=== PATIENT | female | born 1990 | race Caucasian/White ===

== ENCOUNTER 2016-11-22 19:06 | Inpatient (IN) | payer BC ==
[~2016-11-22] VITALS: Ht 167.6 cm; Wt 77.1 kg
[2016-11-22] MEDS ORDERED: NKM (23:19)
[2016-11-22 23:31] VITALS: BP 114/60
[2016-11-23] MEDS ORDERED: Hydromorphone 0.5mg/0.5ml inj IVP PRN (01:30)
[2016-11-23] MEDS ORDERED: HYDROmorphone 1mg/ml Carpuject IVP PRN (01:30)
[2016-11-23] MEDS: Methocarbamol 750mg tab ORAL SCH ×4 (02:18→17:07)
[2016-11-23 04:00] VITALS: BP 94/57
[2016-11-23 06:59] LABS: ANION GAP 9 (5-15); CALCIUM 9.3 mg/dL (8.6-10.2); CARBON DIOXIDE 27 mEQ/L (20-30); CHLORIDE 101 mEQ/L (98-107); CREATININE 0.6 mg/dL (0.5-0.9); GLOMERULAR FILTRATION RATE > 60 mL/min (>60); HEMOLYSIS 4; POTASSIUM 4.2 mEQ/L (3.4-4.9); SODIUM 137 mEQ/L (135-145)
[2016-11-23 08:00] VITALS: BP 102/61
[2016-11-23 08:25] LABS: MEAN CORPUSCULAR HEMOGLOBIN 30.4 PG (27.0-31.0); MEAN CORPUSCULAR HGB CONC 34.1 G/DL (32.0-36.0); MEAN CORPUSCULAR VOLUME 89 FL (80-99); MEAN PLATELET VOLUME 7.1 FL (6.5-10.1); PLATELET COUNT 224 K/UL (150-450); RED BLOOD COUNT 4.23 M/UL (4.20-5.40); RED CELL DISTRIBUTION WIDTH 10.5 % (11.6-14.8); WHITE BLOOD COUNT 14.4 K/UL (4.8-10.8)
[2016-11-23 09:35] LABS: BAND NEUTROPHILS % (MANUAL) 1 % (0-8); LYMPHOCYTES % (MANUAL) 6 % (20-45); NEUTROPHILS % (MANUAL) 88 % (45-75); TOTAL CELLS COUNTED 100
[2016-11-23 09:36] LABS: BASOPHILS % (MANUAL) 0 % (0-2); EOSINOPHILS % (MANUAL) 0 % (0-3); PLATELET ESTIMATE ADEQUATE; PLATELET MORPHOLOGY NORMAL
[2016-11-23 10:33] LABS: PROTHROMBIN TIME 10.9 SEC (9.30-11.50)
[2016-11-23 12:00] VITALS: BP 123/69
[2016-11-23] MEDS: Magnesium Oxide 400mg tab ORAL SCH ×2 (13:03→17:07)
[2016-11-23] MEDS: Heparin 5000 units/ml inj SUBQ SCH ×2 (13:13→20:34)
--- NOTE | 2016-11-23 13:53 | Consultation ---
History of Present Illness General Date patient seen: Nov 23, 2016 Time patient seen: 12:00 Chief Complaint: back pain Referring physician: dr Camargo Reason for Consultation: inpatient management Present Illness HPI 26 /old female with no PMH, was initially presented to [facility] for c/o acute low back pain patient was bending over and felt sharp[ low back pain, causing her to fell on the floor She was unable afterwards to get up and had to crawl to the bed denied bladder or bowel incontinence denied numbness in pelvic/sacral area pain felt in low back, sharp, throbbing, but no radiation in [place] [facility] medicated for pain with NSAID/Toradol, Dilaudid and given loading dose of Solumedrol labs were unremarkable pain improved patient reported similar symptoms when she was 14, resolved after 1 week in the bed never had work up these symptoms patient was transferred to [facility] [place] management Allergies: Coded Allergies: NO KNOWN ALLERGIES (Verified Allergy, Unknown, 11/22/16) Medication History Scheduled No Known Medications* (NKM - No Known Medications*), 0 ., (Reported) Patient History History Provided By: Patient Healthcare decision maker Resuscitation status Full code Advanced Directive on File Review of Systems Constitutional: Reports: weakness Eye: Reports: no symptoms ENT: Reports: no symptoms Respiratory: Reports: no symptoms Cardiovascular: Reports: no symptoms Gastrointestinal: Reports: no symptoms Genitourinary: Reports: no symptoms Musculoskeletal: Reports: see HPI Skin: Reports: no symptoms Psychiatric: Reports: no symptoms Neurological: Reports: no symptoms Endocrine: Reports: no symptoms Hematologic/Lymphatic: Reports: no symptoms Physical Exam General Appearance: WD/WN, no apparent distress, alert Lines, tubes and drains: peripheral HEENT: normocephalic, atraumatic, anicteric, mucous membranes moist, PERRL Neck: non-tender, normal alignment, supple Respiratory/Chest: chest wall non-tender, lungs clear, normal breath sounds, no respiratory distress Cardiovascular/Chest: normal peripheral pulses, normal rate, regular rhythm, no JVD Abdomen: normal bowel sounds, non tender, soft Extremities: normal range of motion, non-tender, no calf tenderness, normal capillary refill Skin Exam: warm/dry 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, no motor/sensory deficits, alert, oriented x 3, responsive Musculoskeletal: normal muscle bulk Last 24 Hour Vital Signs Date Time Temp Pulse Resp B/P (MAP) Pulse Ox O2 Delivery O2 Flow Rate FiO2 11/23/16 12:00 97.6 83 18 123/69 97 Room Air 11/23/16 08:00 98.4 74 20 102/61 97 Room Air 11/23/16 04:00 98.1 84 17 94/57 95 Room Air 11/22/16 23:31 98.0 86 16 114/60 98 Room Air Intake and Output 11/23/16 11/24/16 19:00 07:00 Intake Total 300 ml Balance 300 ml Intake Oral 300 ml # Voids 1 Laboratory Tests Test 11/23/16 05:10 11/23/16 09:55 White Blood Count 14.4 K/UL (4.8-10.8) H Red Blood Count 4.23 M/UL (4.20-5.40) Hemoglobin 12.9 G/DL (12.0-16.0) Hematocrit 37.8 % (37.0-47.0) Mean Corpuscular Volume 89 FL (80-99) Mean Corpuscular Hemoglobin 30.4 PG (27.0-31.0) Mean Corpuscular Hemoglobin Concent 34.1 G/DL (32.0-36.0) Red Cell Distribution Width 10.5 % (11.6-14.8) L Platelet Count 224 K/UL (150-450) Mean Platelet Volume 7.1 FL (6.5-10.1) Neutrophils (%) (Auto) % (45.0-75.0) Lymphocytes (%) (Auto) % (20.0-45.0) Monocytes (%) (Auto) % (1.0-10.0) Eosinophils (%) (Auto) % (0.0-3.0) Basophils (%) (Auto) % (0.0-2.0) Differential Total Cells Counted 100 Neutrophils % (Manual) 88 % (45-75) H Lymphocytes % (Manual) 6 % (20-45) L Monocytes % (Manual) 5 % (1-10) Eosinophils % (Manual) 0 % (0-3) Basophils % (Manual) 0 % (0-2) Band Neutrophils 1 % (0-8) Platelet Estimate Adequate Platelet Morphology Normal Sodium Level 137 mEQ/L (135-145) Potassium Level 4.2 mEQ/L (3.4-4.9) Chloride Level 101 mEQ/L (98-107) Carbon Dioxide Level 27 mEQ/L (20-30) Anion Gap 9 (5-15) Blood Urea Nitrogen 12 mg/dL (7-23) Creatinine 0.6 mg/dL (0.5-0.9) Estimat Glomerular Filtration Rate > 60 mL/min (>60) Glucose Level 177 mg/dL (74-106) H Calcium Level 9.3 mg/dL (8.6-10.2) Phosphorus Level 2.3 mg/dL (2.5-4.8) L Magnesium Level 1.6 mg/dL (1.7-2.5) L Prothrombin Time 10.9 SEC (9.30-11.50) Prothromb Time International Ratio 1.0 (0.9-1.1) Activated Partial Thromboplast Time 26 SEC (23-33) Height (Feet): 5 Height (Inches): 6.00 Weight (Pounds): 170 Medications Current Medications Medications (Trade) Dose Ordered Sig/Michela Route PRN Reason Start Time Stop Time Status Last Admin Dose Admin Acetaminophen (Tylenol) 650 mg Q6H PRN ORAL Mild Pain/Temp > 100.5 11/23/16 01:30 12/23/16 01:29 Diazepam (Valium) 2 mg QHS ORAL 11/23/16 21:00 11/30/16 20:59 Heparin Sodium (Porcine) (Heparin 5000 units/ml) 5,000 units EVERY 12 HOURS SUBQ 11/23/16 12:00 12/23/16 11:59 11/23/16 13:13 Hydromorphone HCl (Dilaudid) 0.5 mg Q6H PRN IVP MILD/MOD PAIN 11/23/16 01:30 11/30/16 01:29 Hydromorphone HCl (Dilaudid) 1 mg Q6H PRN IVP Severe Pain (Pain Scale 7-10) 11/23/16 01:30 11/30/16 01:29 Magnesium Oxide (Mag-Ox 400mg) 400 mg THREE TIMES A DAY ORAL 11/23/16 13:00 11/23/16 18:01 11/23/16 13:03 Methocarbamol (Robaxin) 750 mg TID ORAL 11/23/16 01:30 12/23/16 01:29 11/23/16 13:03 Ondansetron HCl (Zofran) 4 mg Q6H PRN IVP Nausea & Vomiting 11/23/16 01:30 12/23/16 01:29 Prednisone (predniSONE) 40 mg DAILY ORAL 11/23/16 09:00 11/27/16 09:00 11/23/16 09:27 Ranitidine HCl (Zantac) 75 mg TWICE A DAY ORAL 11/23/16 09:00 12/23/16 08:59 11/23/16 09:32 Assessment/Plan Assessment/Plan ASSESSMENT acute and intractable low back pain leukocytosis, likely reactive PLAN OF CARE MS floor pain management with multiple array of NSAID, muscle relaxants and opioids steroid pulse neuro and ortho eval - pe PMD discretion MRI L spine and sacral to r/o acute pathology replace Mg with oral Mg oxide Neutro-Phosp x 3 doses only fup with lytes DVT , GI prophylaxis monitor count, leukocytosis likely reactive due to steroids ( in [facility], this am -14.4) check UA case discussed and evaluated by supervising physician Ramu Arthur),Devi CAMPBELL Nov 23, 2016 13:53
[2016-11-23 16:00] VITALS: BP 120/75
--- NOTE | 2016-11-23 16:26 | History & Physical ---
History and Physical History & Physicial Dictated for Int Med-Dr Camargo no. [id number]. ELLI EDMOND Nov 23, 2016 16:26
[2016-11-23] MEDS: Phospha 250 Neutral tab ORAL SCH (17:06)
[2016-11-23 20:00] VITALS: BP 116/66
--- NOTE | 2016-11-23 23:30 | History and Physical Report ---
DATE OF ADMISSION: 11/22/2016 Chief Complaint: The patient is a 26-year-old white female, who presents with a chief complaint of low back pain. History Of Present Illness: Began two weeks prior to admission. The patient states she was lifting at the gym. The patient also carried three gallons of water up the stairs that day. The patient began to experience back pain. The patient has a previous history of low back pain, however, this has never been worked up. 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 The patient states on 11/22/2016, she bent over in the shower. The patient states her back "gave out." The patient states it felt like she lost muscle strength. The patient presented initially to [facility] emergency room. The patient is transferred to [facility] for insurance purposes. The patient presents with a chief complaint of low back pain. PAST MEDICAL HISTORY: The patient denies. PAST SURGICAL HISTORY: The patient denies. CURRENT MEDICATIONS: P.r.n. muscle relaxants (unknown). ALLERGIES: No known drug allergies. Social History: The patient is single. 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 The patient denies tobacco use. The patient admits to rare alcohol use. PHYSICAL EXAMINATION: Vital Signs: Temperature 98.0 degrees, pulse 86, blood pressure 114/62, and respirations 16. General: The patient is a well-developed and well-nourished white female, in no apparent distress. HEENT: Eyes, pupils equal and responsive to light and accommodation. Extraocular movements are intact. NECK: Supple without lymphadenopathy. Chest: Lungs are clear to auscultation bilaterally without wheezes or rales. Cardiovascular: Regular rhythm and rate. S1 and S2 are normal without murmurs, rubs, or gallops. Abdomen: Soft, nontender, and nondistended. Positive bowel sounds. No evidence of hepatosplenomegaly. Currently, no rebound or guarding noted. EXTREMITIES: Negative for clubbing, cyanosis, or edema. Neurologic: Cranial nerves II through XII are grossly intact without focal deficits. Motor strength is 5/5 bilaterally. Deep tendon reflexes are 2+ plantar. Straight leg raises are negative bilaterally. ASSESSMENT: This is a 26-year-old white female. 1. Intractable back pain. Treatment: Intractable back pain. An MRI of the back is pending. A Neurology consultation was obtained with Dr. Montesinos. An Orthopedic consultation was obtained with Dr. Correa. We will follow recommendations of Orthopedics and Neurology. The patient will be offered intravenous morphine p.r.n. for back pain. Kyle Nye M.D. DR: CURTIS JOB#: [id number] CC:
[2016-11-24] VITALS: BP 109/65
[2016-11-24 04:00] VITALS: BP 106/70
[2016-11-24 08:00] VITALS: BP 131/80
--- NOTE | 2016-11-24 08:35 | Pulmonology Progress Note ---
Assessment/Plan Assessment/Plan ASSESSMENT acute and intractable low back pain leukocytosis ( likely reactive due to steroids) PLAN OF CARE MS floor neuro eval pending pain management with multiple array of NSAID, muscle relaxants and opioids steroid pulse MRI L spine and sacral to r/o acute pathology Mg replacement with oral Mg oxide Neutro-Phosp x 3 doses only fup with lytes DVT , GI prophylaxis monitor count, leukocytosis likely reactive due to [facility] check UA labs pending for this am case discussed and evaluated by supervising physician Subjective Allergies: Coded Allergies: NO KNOWN ALLERGIES (Verified Allergy, Unknown, 11/22/16) Subjective still with pain, slowly improving pain with ambulation, not at rest no sacral numbness, no bowel/bladder incontinence, no radiation of pain imaging pending Objective Last 24 Hour Vital Signs Date Time Temp Pulse Resp B/P (MAP) Pulse Ox O2 Delivery O2 Flow Rate FiO2 11/24/16 04:00 97.9 80 18 106/70 96 Room Air 11/24/16 00:00 98.0 73 18 109/65 94 Room Air 11/23/16 20:00 98.2 77 18 116/66 96 Room Air 11/23/16 18:00 97.6 11/23/16 16:00 97.7 92 20 120/75 94 Room Air 11/23/16 12:00 97.6 83 18 123/69 97 Room Air Objective General Appearance: WD/WN, no apparent distress, alert Lines, tubes and drains: peripheral HEENT: normocephalic, atraumatic, anicteric, mucous membranes moist, PERRL Neck: non-tender, normal alignment, supple Respiratory/Chest: chest wall non-tender, lungs clear, normal breath sounds, no respiratory distress Cardiovascular/Chest: normal peripheral pulses, normal rate, regular rhythm, no JVD Abdomen: normal bowel sounds, non tender, soft Extremities: normal range of motion, non-tender, no calf tenderness, normal capillary refill Skin Exam: warm/dry 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, no motor/sensory deficits, alert, oriented x 3, responsive Musculoskeletal: normal muscle bulk Laboratory Tests 11/23/16 09:55: Prothrombin Time 10.9, Prothromb Time International Ratio 1.0, Activated Partial Thromboplast Time 26 Current Medications Medications (Trade) Dose Ordered Sig/Michela Route PRN Reason Start Time Stop Time Status Last Admin Dose Admin Acetaminophen (Tylenol) 650 mg Q6H PRN ORAL Mild Pain/Temp > 100.5 11/23/16 01:30 12/23/16 01:29 11/23/16 17:08 Diazepam (Valium) 2 mg QHS ORAL 11/23/16 21:00 11/30/16 20:59 11/23/16 20:33 Heparin Sodium (Porcine) (Heparin 5000 units/ml) 5,000 units EVERY 12 HOURS SUBQ 11/23/16 12:00 12/23/16 11:59 11/23/16 20:34 Hydromorphone HCl (Dilaudid) 0.5 mg Q6H PRN IVP MILD/MOD PAIN 11/23/16 01:30 11/30/16 01:29 Hydromorphone HCl (Dilaudid) 1 mg Q6H PRN IVP Severe Pain (Pain Scale 7-10) 11/23/16 01:30 11/30/16 01:29 Methocarbamol (Robaxin) 750 mg TID ORAL 11/23/16 01:30 12/23/16 01:29 11/23/16 17:07 Ondansetron HCl (Zofran) 4 mg Q6H PRN IVP Nausea & Vomiting 11/23/16 01:30 12/23/16 01:29 Phosphorus (Phospha 250 Neutral) 250 mg THREE TIMES A DAY ORAL 11/23/16 18:00 11/24/16 13:01 11/23/16 17:06 Prednisone (predniSONE) 40 mg DAILY ORAL 11/23/16 09:00 11/27/16 09:00 11/23/16 09:27 Ranitidine HCl (Zantac) 75 mg TWICE A DAY ORAL 11/23/16 09:00 12/23/16 08:59 11/23/16 17:06 Devi Guallpa NP (Vanchtein) Nov 24, 2016 08:35
[2016-11-24] MEDS: Heparin 5000 units/ml inj SUBQ SCH ×2 (09:00→21:00)
[2016-11-24] MEDS: Methocarbamol 750mg tab ORAL SCH ×3 (09:51→17:40)
[2016-11-24] MEDS: Phospha 250 Neutral tab ORAL SCH ×2 (09:51→13:41)
[2016-11-24 12:00] VITALS: BP 111/75
[2016-11-24 15:00] LABS: APPEARANCE,URINE SLIGHTLY CLOUDY; KETONES,URINE NEGATIVE (NEGATIVE); LEUKOCYTE ESTERASE ,URINE NEGATIVE (NEGATIVE); NITRITE,URINE NEGATIVE (NEGATIVE); PH,URINE 8 (4.5-8.0); PROTEIN,URINE NEGATIVE (NEGATIVE); UROBILINOGEN,URINE NORMAL MG/DL (0.0-1.0)
[2016-11-24 15:07] LABS: BACTERIA,URINE OCCASIONAL /HPF; RBC,URINE 0-2 /HPF (0 - 2); SQUAMOUS EPITHELIAL CELL,UR OCCASIONAL /LPF (NONE/OCC); WBC,URINE 0-2 /HPF (0 - 2)
--- NOTE | 2016-11-24 15:53 | Internal Med Progress Note ---
Subjective Date of Service: Nov 24, 2016 Physician Name Kyle Edmond Attending Physician Eduar Camargo MD Current Medications Medications (Trade) Dose Ordered Sig/Michela Route PRN Reason Start Time Stop Time Status Last Admin Dose Admin Acetaminophen (Tylenol) 650 mg Q6H PRN ORAL Mild Pain/Temp > 100.5 11/23/16 01:30 12/23/16 01:29 11/23/16 17:08 Diazepam (Valium) 2 mg QHS ORAL 11/23/16 21:00 11/30/16 20:59 11/23/16 20:33 Heparin Sodium (Porcine) (Heparin 5000 units/ml) 5,000 units EVERY 12 HOURS SUBQ 11/23/16 12:00 12/23/16 11:59 11/23/16 20:34 Hydromorphone HCl (Dilaudid) 0.5 mg Q6H PRN IVP MILD/MOD PAIN 11/23/16 01:30 11/30/16 01:29 Hydromorphone HCl (Dilaudid) 1 mg Q6H PRN IVP Severe Pain (Pain Scale 7-10) 11/23/16 01:30 11/30/16 01:29 Methocarbamol (Robaxin) 750 mg TID ORAL 11/23/16 01:30 12/23/16 01:29 11/24/16 13:41 Ondansetron HCl (Zofran) 4 mg Q6H PRN IVP Nausea & Vomiting 11/23/16 01:30 12/23/16 01:29 Prednisone (predniSONE) 40 mg DAILY ORAL 11/23/16 09:00 11/27/16 09:00 11/24/16 09:51 Ranitidine HCl (Zantac) 75 mg TWICE A DAY ORAL 11/23/16 09:00 12/23/16 08:59 11/24/16 09:51 Allergies: Coded Allergies: NO KNOWN ALLERGIES (Verified Allergy, Unknown, 11/22/16) ROS Limited/Unobtainable: No Constitutional: Reports: no symptoms HEENT: Reports: no symptoms Cardiovascular: Reports: no symptoms Respiratory: Reports: no symptoms Gastrointestinal/Abdominal: Reports: no symptoms Genitourinary: Reports: no symptoms Neurologic/Psychiatric: Reports: no symptoms Subjective 26 YO F admitted with intractable back pain. Await MRI result. Cover for Int Med-Dr Camargo Objective Last Vital Signs Date Time Temp Pulse Resp B/P (MAP) Pulse Ox O2 Delivery O2 Flow Rate FiO2 11/24/16 12:00 98.4 95 20 111/75 95 Room Air General Appearance: WD/WN, no apparent distress, alert EENT: PERRL/EOMI, normal ENT inspection, TMs normal Neck: non-tender, normal alignment, supple, normal inspection Cardiovascular: normal peripheral pulses, normal rate, regular rhythm, no gallop/murmur, no JVD Respiratory/Chest: chest wall non-tender, lungs clear, normal breath sounds, no respiratory distress, no accessory muscle use Abdomen: normal bowel sounds, non tender, soft, no organomegaly, no mass Extremities: normal range of motion, non-tender 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, no motor/sensory deficits Skin: normal pigmentation, warm/dry Laboratory Tests Test 11/24/16 14:14 Urine Color Pale yellow Urine Appearance Slightly cloudy Urine pH 8 (4.5-8.0) Urine Specific [place] 1.015 (1.005-1.035) Urine Protein Negative (NEGATIVE) Urine Glucose (UA) Negative (NEGATIVE) Urine Ketones Negative (NEGATIVE) Urine Occult Blood Negative (NEGATIVE) Urine Nitrite Negative (NEGATIVE) Urine Bilirubin Negative (NEGATIVE) Urine Urobilinogen Normal MG/DL (0.0-1.0) Urine Leukocyte Esterase Negative (NEGATIVE) Urine RBC 0-2 /HPF (0 - 2) Urine WBC 0-2 /HPF (0 - 2) Urine Squamous Epithelial Cells Occasional /LPF Urine Bacteria Occasional /HPF (NONE) Intake and Output 11/24/16 11/25/16 19:00 07:00 Intake Total 360 ml Balance 360 ml Intake Oral 360 ml # Voids 3 Assessment/Plan Problem List: (1) Intractable low back pain Assessment & Plan: Await MRI lumbar spine. Await pain management consult. KYLE EDMOND Nov 24, 2016 15:53
[2016-11-24 16:00] VITALS: BP 113/69
[2016-11-24 20:00] VITALS: BP 119/71
[2016-11-25 06:24] VITALS: BP 107/68
[2016-11-25 08:00] VITALS: BP 124/75
[2016-11-25] MEDS: Methocarbamol 750mg tab ORAL SCH ×2 (08:32→13:16)
[2016-11-25] MEDS: Heparin 5000 units/ml inj SUBQ SCH (08:32)
--- NOTE | 2016-11-25 09:49 | Diagnostic Imaging Report ---
Indication: Lumbosacral back pain x3 days Technique: Sagittal T1 and T2 fast spin echo, sagittal STIR, axial T1 and T2 fast spin-echo images of the lumbar spine Comparison: None Findings: Vertebral body heights are preserved. Bony alignment is normal. Disc spaces are preserved. Vertebral body marrow signal is normal. There is desiccation of the L5-S1 disc. The disc signal is normal and the remainder of the discs. The conus medullaris terminates at the T12-L1 level. There is increased T2 signal, most likely on the STIR images, within the L4-5 and L5-S1 interspinous ligaments. There is minimal circumferential annular bulge at L5-S1, which does not significantly compromise the thecal sac or neural foramina. Elsewhere, no significant disc bulge or protrusion, spinal stenosis, or neural foraminal stenosis demonstrated. The included extraspinal soft tissues are unremarkable. Impression: Evidence of edema of the at L4-5 and L5-S1 interspinous ligaments, concerning for acute interspinous ligament injury No acute bony trauma or evidence of significant neural impingement This agrees with the preliminary interpretation provided overnight by [facility] teleradiology service.
--- NOTE | 2016-11-25 09:54 | Diagnostic Imaging Report ---
Indication: Lumbosacral pain, x3 days. Possible exercise/lifting injury Technique: Sagittal T1 fast echo, sagittal STIR, sagittal T2 FR FSE, axial T1, coronal oblique T1 FSE images of the sacrum Comparison: None Findings: Slightly increased STIR signal, minimally decreased T1 signal is seen involving S3 and S4, to a lesser extent S2. The cortical margins appear intact. There is mild epidural lipomatosis involving S2-S5 Included extraspinal soft tissues are unremarkable. Impression: Evidence of slight marrow edema involving history and L4 segments, to lesser extent S2. This could represent marrow contusion. No evidence of fracture Mild sacral epidural lipomatosis This agrees with the preliminary interpretation provided overnight by [facility] teleradiology service.
--- NOTE | 2016-11-25 11:10 | Internal Med Progress Note ---
Subjective Date of Service: Nov 25, 2016 Physician Name Kyle Nye Attending Physician Eduar Camargo MD Current Medications Medications (Trade) Dose Ordered Sig/Michela Route PRN Reason Start Time Stop Time Status Last Admin Dose Admin Acetaminophen (Tylenol) 650 mg Q6H PRN ORAL Mild Pain/Temp > 100.5 11/23/16 01:30 12/23/16 01:29 11/25/16 08:28 Diazepam (Valium) 2 mg QHS ORAL 11/23/16 21:00 11/30/16 20:59 11/24/16 20:23 Heparin Sodium (Porcine) (Heparin 5000 units/ml) 5,000 units EVERY 12 HOURS SUBQ 11/23/16 12:00 12/23/16 11:59 11/23/16 20:34 Hydromorphone HCl (Dilaudid) 0.5 mg Q6H PRN IVP MILD/MOD PAIN 11/23/16 01:30 11/30/16 01:29 Hydromorphone HCl (Dilaudid) 1 mg Q6H PRN IVP Severe Pain (Pain Scale 7-10) 11/23/16 01:30 11/30/16 01:29 Methocarbamol (Robaxin) 750 mg TID ORAL 11/23/16 01:30 12/23/16 01:29 11/25/16 08:32 Ondansetron HCl (Zofran) 4 mg Q6H PRN IVP Nausea & Vomiting 11/23/16 01:30 12/23/16 01:29 Prednisone (predniSONE) 40 mg DAILY ORAL 11/23/16 09:00 11/27/16 09:00 11/25/16 08:29 Ranitidine HCl (Zantac) 75 mg TWICE A DAY ORAL 11/23/16 09:00 12/23/16 08:59 11/25/16 08:28 Allergies: Coded Allergies: NO KNOWN ALLERGIES (Verified Allergy, Unknown, 11/22/16) ROS Limited/Unobtainable: No Constitutional: Reports: no symptoms HEENT: Reports: no symptoms Cardiovascular: Reports: no symptoms Respiratory: Reports: no symptoms Gastrointestinal/Abdominal: Reports: no symptoms Genitourinary: Reports: no symptoms Neurologic/Psychiatric: Reports: no symptoms Subjective 26 YO F admitted with intractable back pain. Await ortho and pain management consult. Cover for Int Med-Dr Camargo. Patient is not satisfied with care here at [place]. Complains that MRI results took too long. Patient has several complaints about billing, ie.separate billing for each physician and procedure. Await patient relations personal financial representative to speak to concerns with patient. Objective Last Vital Signs Date Time Temp Pulse Resp B/P (MAP) Pulse Ox O2 Delivery O2 Flow Rate FiO2 11/25/16 08:00 97.9 73 19 124/75 96 Room Air Laboratory Tests Test 11/24/16 14:14 Urine Color Pale yellow Urine Appearance Slightly cloudy Urine pH 8 (4.5-8.0) Urine Specific [place] 1.015 (1.005-1.035) Urine Protein Negative (NEGATIVE) Urine Glucose (UA) Negative (NEGATIVE) Urine Ketones Negative (NEGATIVE) Urine Occult Blood Negative (NEGATIVE) Urine Nitrite Negative (NEGATIVE) Urine Bilirubin Negative (NEGATIVE) Urine Urobilinogen Normal MG/DL (0.0-1.0) Urine Leukocyte Esterase Negative (NEGATIVE) Urine RBC 0-2 /HPF (0 - 2) Urine WBC 0-2 /HPF (0 - 2) Urine Squamous Epithelial Cells Occasional /LPF Urine Bacteria Occasional /HPF (NONE) Intake and Output 11/25/16 11/26/16 19:00 07:00 Intake Total 240 ml Balance 240 ml Intake Oral 240 ml Assessment/Plan Problem List: (1) Intractable low back pain Assessment & Plan: MRI lumbar spine=minimal disc bulge at L5-S1 and edema of L4 -5 and L5-[id number] ligaments. Copy of MRI result and disc given to patient. Await orhto consult-Dr Correa. Await pain management consult-Dr Sales. Status: KYLE Maya Nov 25, 2016 11:10
[2016-11-25 12:00] VITALS: BP 107/69
[2016-11-25] MEDS ORDERED: Naproxen 500mg tab ORAL SCH (12:00)
--- NOTE | 2016-11-25 12:53 | Neurology Progress Note ---
Interim History Interim History ROS Limited/Unobtainable: No Objective Physical Exam Last Vital Signs Date Time Temp Pulse Resp B/P (MAP) Pulse Ox O2 Delivery O2 Flow Rate FiO2 11/25/16 08:00 97.9 73 19 124/75 96 Room Air Laboratory Tests Test 11/24/16 14:14 Urine Color Pale yellow Urine Appearance Slightly cloudy Urine pH 8 (4.5-8.0) Urine Specific [place] 1.015 (1.005-1.035) Urine Protein Negative (NEGATIVE) Urine Glucose (UA) Negative (NEGATIVE) Urine Ketones Negative (NEGATIVE) Urine Occult Blood Negative (NEGATIVE) Urine Nitrite Negative (NEGATIVE) Urine Bilirubin Negative (NEGATIVE) Urine Urobilinogen Normal MG/DL (0.0-1.0) Urine Leukocyte Esterase Negative (NEGATIVE) Urine RBC 0-2 /HPF (0 - 2) Urine WBC 0-2 /HPF (0 - 2) Urine Squamous Epithelial Cells Occasional /LPF Urine Bacteria Occasional /HPF (NONE) Impression/Recommendations Status: progressing Recommendations #[id number] VIKI HOLLAND Nov 25, 2016 12:53
--- NOTE | 2016-11-25 14:45 | Pulmonology Progress Note ---
Assessment/Plan Problems: (1) Intractable low back pain Assessment/Plan all reviewed d/w neurology, Dr. Montesinos who recommended Prednisone rapid taper. pt wants to go home with close f/u with her primary Subjective ROS Limited/Unobtainable: No Interval Events: frustarated, wants to leave now Constitutional: Reports: no symptoms HEENT: Repors: no symptoms Allergies: Coded Allergies: NO KNOWN ALLERGIES (Verified Allergy, Unknown, 11/22/16) Objective Last 24 Hour Vital Signs Date Time Temp Pulse Resp B/P (MAP) Pulse Ox O2 Delivery O2 Flow Rate FiO2 11/25/16 12:00 97.9 81 18 107/69 99 Room Air 11/25/16 08:00 97.9 73 19 124/75 96 Room Air 11/25/16 06:24 97.8 78 18 107/68 99 Room Air 11/24/16 20:00 97.1 95 18 119/71 96 Room Air 11/24/16 16:00 98.1 94 20 113/69 94 Room Air Intake and Output 11/25/16 11/26/16 19:00 07:00 Intake Total 480 ml Balance 480 ml Intake Oral 480 ml # Voids 1 General Appearance: WD/WN HEENT: normocephalic, atraumatic Respiratory/Chest: chest wall non-tender, lungs clear Cardiovascular: normal peripheral pulses, normal rate Abdomen: normal bowel sounds, soft, non tender Genitourinary: normal external genitalia Extremities: no cyanosis, no clubbing Skin: no rash Current Medications Medications (Trade) Dose Ordered Sig/Michela Route PRN Reason Start Time Stop Time Status Last Admin Dose Admin Acetaminophen (Tylenol) 650 mg Q6H PRN ORAL Mild Pain/Temp > 100.5 11/23/16 01:30 12/23/16 01:29 11/25/16 08:28 Diazepam (Valium) 2 mg QHS ORAL 11/23/16 21:00 11/30/16 20:59 11/24/16 20:23 Heparin Sodium (Porcine) (Heparin 5000 units/ml) 5,000 units EVERY 12 HOURS SUBQ 11/23/16 12:00 12/23/16 11:59 11/23/16 20:34 Hydromorphone HCl (Dilaudid) 0.5 mg Q6H PRN IVP MILD/MOD PAIN 11/23/16 01:30 11/30/16 01:29 Hydromorphone HCl (Dilaudid) 1 mg Q6H PRN IVP Severe Pain (Pain Scale 7-10) 11/23/16 01:30 11/30/16 01:29 Methocarbamol (Robaxin) 750 mg TID ORAL 11/23/16 01:30 12/23/16 01:29 11/25/16 13:16 Ondansetron HCl (Zofran) 4 mg Q6H PRN IVP Nausea & Vomiting 11/23/16 01:30 12/23/16 01:29 Prednisone (predniSONE) 40 mg DAILY ORAL 11/23/16 09:00 11/27/16 09:00 11/25/16 08:29 Ranitidine HCl (Zantac) 75 mg TWICE A DAY ORAL 11/23/16 09:00 12/23/16 08:59 11/25/16 08:28 MARCI GARCÍA Nov 25, 2016 14:45
[2016-11-25] MEDS ORDERED: PREDNISONE20 MG ORAL (15:16)
[2016-11-25] MEDS ORDERED: PREDNISONE10 MG ORAL (15:18)
[2016-11-25] MEDS ORDERED: ACETAMINOPHEN-1 EAC1 ORAL (15:19)
[2016-11-25 16:00] VITALS: BP 121/71
--- NOTE | 2016-11-25 19:00 | Consultation ---
DATE OF CONSULTATION: 11/25/2016 NEUROLOGIC CONSULTATION CONSULTING PHYSICIAN: Scott Montesinos M.D. REQUESTED PHYSICIAN: Eduar Camargo M.D. History Of Present Illness: The patient is a 26-year-old female seen in neurological consultation to evaluate acute low back pain. The patient informed me that couple of weeks ago, she started to develop pain in her low back region, which she attributed to extensive exercises including heavy lifting. Then on day of admission, she came out of the shower and she was bending over to dry up her legs when her low back gave out. She had an acute severe pain in her low back region causing her to fall. She felt that she was unable to move without pain, so she had to crawl to the bed where she "stuck" in the bed for 4 hours. Called paramedics, taken to [facility], presenting with severe low back pain without associated symptoms. There was no radiation of the pain except sometimes to the proximal aspect of right leg. There were no urine or bowel incontinence. No unilateral weakness, numbness, or tingling. The patient was treated with the pain management including Dilaudid and Toradol. She was loaded with Solu-Medrol. Her vital signs remained stable, and her CBC and electrolytes were unremarkable. She was then transported to this facility for further assessment and treatment. Her vital signs remained stable. Laboratory work was repeated including CBC study with WBC of 14.4, normal coagulation panel, normal urinalysis, and chemistry panel except low phosphorus and magnesium. Imaging studies included an MRI of her sacrum. This revealed evidence of slight marrow edema starting at L4 down to S2, which represents marrow contusion. No evidence of fracture. There was a mild sacral epidural lipomatosis. MRI of the lumbar spine revealed no fracture and no dislocation. There was evidence of edema from L4-L5 and L5-S1 until spinal ligaments, concerning with acute interspinous ligament injury. Past Medical History: The patient is indicating that she had a similar episode at age of 14, this resolved within few days. She had no insurance and there was no medical care at that time. Three months ago, she developed acute right trigeminal neuralgia, seen neurologist, was maintained on Motrin for a couple of months and then started Neurontin and felt much improvement. Her MRI of the brain revealed no evidence of demyelination. She denies any other major medical problems. Medications: The patient's treatment included Tylenol, Valium 2 mg at bedtime, subcutaneous heparin, Dilaudid 1 mg q.6 h. p.r.n., Robaxin 750 mg b.i.d., Naprosyn 500 mg b.i.d., Zofran, as well as prednisone 40 mg daily, and Zantac. ALLERGIES: None reported. Social History: No alcohol. No drug abuse. Nonsmoker. She attends gym regularly. FAMILY HISTORY: Noncontributory. Review Of Systems: Today, she is feeling better. Still has sensation that low back has no strength. She feels that at anytime, it can come and give out. There is no radiating pain. No numbness. No tingling. No urine or bowel incontinence. Denies headache or dizziness. No facial pain. No chest pain. No palpitation. No respiratory problems. Denies abdominal pain or discomfort. PHYSICAL EXAMINATION: General: This is a well-developed, well-nourished, pleasant lady, not in acute distress, sitting in a chair. She is comfortable. VITAL SIGNS: Stable. Blood pressure 124/75. Afebrile. HEENT: Head normocephalic. No evidence of trauma. Eyes, ears, and throat are clear. NECK: Supple. No meningeal signs. Musculoskeletal: Examination unremarkable except minor discomfort on percussion in the lumbosacral region. No deformities. Range of motion in the lumbar region is limited. Upper and lower extremities without clubbing, cyanosis, or edema. Peripheral pulses 1+ and symmetric. Neurologic: Mental Status: She is fully alert and oriented x3 with no evidence of aphasia or apraxia. Her cognitive function is normal. Cranial Nerves Cranial Nerve II: Pupils both responding to light and accommodation. Extraocular movements intact. No nystagmus. CRANIAL NERVE V: Normal corneal responses. CRANIAL NERVE VII: No facial asymmetry. CRANIAL NERVE VIII: Grossly normal hearing. CRANIAL NERVES IX THROUGH XII: Within normal limits. Motor Examination: Normal muscle tone. Strength 5/5 in all extremities. No involuntary movement. Deep tendon reflexes 1+ and symmetric with downgoing toes on both sides. Sensory Exam: Normal to pinprick and light touch. Coordination, normal [id number] test. GAIT: Slow and antalgic. IMPRESSION: 1. Acute lumbosacral intractable pain due to L4-L5 and L5-S1 disc injury. Rule out discitis, doubt presence of collagen vascular disease. 2. History of right-sided trigeminal neuralgia. Discussion: The patient indicated similar acute low back pain developed at the age of 14 that had gradually resolved. There was no recurrence since until present time. This preceded at least a couple of weeks of low back pain attributed to heavy lifting and extensive physical activities including running, which could be the cause of ligamentous trauma. The patient's leukocytosis is most likely related to use of steroids. The patient rapidly improved within the last 4 days. She was placed on Solu-Medrol and maintained on prednisone daily. At this time, I would recommend to taper off prednisone, hold nonsteroidals while on prednisone, but resume again Naprosyn 500 mg b.i.d. in the following few days, continue Robaxin as a muscle relaxant, use lumbar spine brace during daily activities, avoid any strenuous physical exertion. No running, no heavy lifting in the following few months until pain and discomfort completely resolve. Laboratory work to include MICHAEL, sedimentation rate, and CRP. From neuro point of view, the patient will be able to be discharged. Thank you for allowing me to see this interesting patient in neurological consultation. Scott Montesinos M.D. DR: INESSA JOB#: [id number] CC:
--- NOTE | 2016-11-26 14:47 | Discharge Summary ---
Discharge Summary Hospital Course Date of Admission Nov 22, 2016 at 22:31 Date of Discharge Nov 25, 2016 at 16:00 Admitting Diagnosis JEROME Salinas is a 26 year old female who was admitted on Nov 22, 2016 at 22 :31 for Uncontrolled Back Pain Hospital Course dc summary #[id number] Discharge Medications Continued Medications: Acetaminophen With Codeine (T#3) (Tylenol #3 Tab*) Y Tab 1 TAB ORAL Q6HR PRN for For Pain, TAB Prednisone* (Prednisone*) 20 Mg Tablet 40 MG ORAL DAILY for 3 Days, TAB Prednisone* (Prednisone*) 10 Mg Tablet 10 MG ORAL DAILY for 3 Days, #10 TAB 0 Refills Discharge Condition Upon Discharge: stable Discharge Disposition Patient was discharged to Home (01) Discharge Diagnoses: Ramu (James)Devi NP Nov 26, 2016 14:47
--- NOTE | 2016-11-27 18:30 | Discharge Summary 2 SIG ---
DATE OF ADMISSION: 11/22/2016 DATE OF DISCHARGE: 11/25/2016 Reason For Admission: 26-year-old female with no past medical history, initially presented to [facility] with a complaint of acute low back pain. The patient was bending over and felt sharp low back pain causing her to fall on the floor. She was unable afterwards to get up and had to crawl to her bed. She denied bladder or bowel incontinence. She denied numbness in pelvic and sacral area. Pain felt in the low back, was sharp, throbbing, but no radiation. In [facility], vital signs were stable. The patient was medicated for pain with nonsteroid antiinflammatory drug/ Toradol and Dilaudid, as well as given loading dose of Solu-Medrol. Laboratory work revealed WBC of 14.4, otherwise were unremarkable. Pain improved. The patient reported similar symptoms when she was 14, which resolved after one week in the bed. The patient happened to be under strenuous physical activity at that time. The patient never had a workup for these symptoms. The patient was transferred to [facility] for pain management. ADMITTING DIAGNOSES: 1. Acute and intractable low back pain. 2. Leukocytosis, likely reactive. Hospital Stay: The patient was admitted to medical/surgical floor. Pain management provided with opioid and muscle relaxant, steroid pulse started. Neurology evaluation was requested. MRI of the L-spine and sacrum was ordered to rule out acute pathology. Magnesium was low at 1.6, replaced with oral magnesium oxide. Phosphorous was low, Neutra-Phos given for three doses. DVT and GI prophylaxis provided. Leukocytosis, was likely reactive secondary to steroids( first dose given in [facility], and laboratory work was obtained on arrival to [facility]. The patient had no fever. No clinical evidence of infection. The patient had an MRI done. Lumbar spine MRI revealed edema at the L4-L5 and L5-S1 interspinous ligament, concerning for acute interspinous ligament injury, and sacrum and coccyx MRI revealed slight marrow edema involving L4 segment, to lesser extent S2, which could represent marrow contusion. No evidence of fracture. Mild sacral epidural lipomatosis. Neurologist closely reviewed the imagings and concluded that the patient had acute lumbar spine intractable back pain secondary to L4-L5 and L5-S1 disk injury. He doubted presence of collagen vascular disease. He recommended to taper fast steroids, do not take nonsteroid anti-inflammatory when the patient was on steroid, but after steroids tapered off, start nonsteroid antiinflammatories such as Naprosyn 500 mg b.i.d. and continue with a muscle relaxant such as Robaxin. He also recommended to use lumbar spine brace during daily activities, avoid any strenuous physical exertion. No running. No heavy lifting in the following few months until pain and discomfort completely resolved. MICHAEL, sedimentation rate, and CRP were ordered. The patient declined blood tests at that time. Clinically, she significantly improved with pain management and steroid pulse. Patient wants to follow up with primary medical doctor and do further laboratory testing as necessary. The patient was stable for discharge home. FINAL DIAGNOSES: 1. Acute lumbar spine intractable pain due to L4-L5 and L5-S1 disk injury. 2. Acute ligament injury. DISCHARGE MEDICATIONS: See medication reconciliation list. Discharge Instructions: The patient was discharged home. Prescription provided. Follow up with the primary care provider. Eduar Camargo M.D. Devi Guallpa ([facility]) NRachelPRachel DR: Zakiya JOB#: [id number] CC: PERCY
== END 2016-11-25 16:00 | disposition home or self-care (01) | DRG 914 ==
LOC: 3E 22:31
DX: S39.82XA Other specified injuries of lower back, initial encounter (principal); M24.20 Disorder of ligament, unspecified site; X50.0XXA Overexertion from strenuous movement or load, initial encounter
CPT/HCPCS: 36415; 72148; 72195; 80048; 81001; 83735; 84100; 85007; 85025; 85610; 85730; C9399